=== PATIENT | female | born 1945 | race Caucasian/White ===

== ENCOUNTER 2023-07-15 09:13 | Day surgery (SDC) | payer OTHER, SELFPAY ==
[2023-07-05 10:24] VITALS: BMI 28.8
[2023-07-05 10:53] LABS: % Basophils 0.5 % (0-2); % Eosinophils 2.5 % (0-6); % Immature Granulocytes 0.3 % (0-0.5); % Lymphocytes 36.3 % (20.5-51.1); % Monocytes 9.6 % (1.7-9.3); % Neutrophils 50.8 % (42.2-75.2); Absolute Eosinophils 0.2 10^3/uL (0-0.7); Absolute Lymphocytes 2.3 10^3/uL (1.2-3.4); Absolute Monocytes 0.6 10^3/uL (0.1-0.6); Absolute Neutrophils 3.2 10^3/uL (1.4-6.5); Hematocrit 32.1 % (37.0-47.0); Hemoglobin 10.5 g/dL (12.0-16.0); Mean Corp Hgb Conc. 32.7 g/dL (33.0-37.0); Mean Corpuscular Hgb 28.8 pg (27.0-31.0); Mean Corpuscular Volume 88.2 fL (81.0-99.0); Mean Platelet Volume 10.4 fL (7.4-10.4); Nucleated Red Blood Cells % 0 %; Platelet Count 204 10^3/uL (130-400); Red Blood Cell Count 3.64 10^6/uL (4.20-5.40); Red Cell Dist. Width 13.7 % (11.5-14.5); White Blood Cell Count 6.3 10^3/uL (4.8-10.8)
[2023-07-05 11:00] LABS: ALT (SGPT) 33 U/L (0-35); AST (SGOT) 31 U/L (14-36); Alkaline Phosphatase 63 U/L (38-126); Blood Urea Nitrogen 26 mg/dl (7-17); Calcium 9.2 mg/dl (8.4-10.2); Carbon Dioxide 23 mmol/L (22-30); Chloride 105 mmol/L (98-107); Estimated Creatinine Clearance 25 ml/min; Glucose 165 mg/dl (70-99); Magnesium 2.3 mg/dl (1.6-2.3); Potassium 4.9 mmol/L (3.5-5.1); Sodium 135 mmol/L (135-145); Total Bilirubin 0.3 mg/dl (0.2-1.3); Total Protein 6.4 g/dl (6.3-8.2); eGFR 30.32
[2023-07-15] VITALS (8 sets, daily range): BP systolic 124–182; BP diastolic 57–86
--- NOTE | 2023-07-15 10:42 | W.ICD.CONTRA ---
Post ICD/MEAT BONER-D
-
History of NC?: Yes
LV Function
Left ventricular function study result?: Ejection Fraction </= 35%
ACEI/ARB/ARNI
Patient already on ACEI/ARB/ARNI: No
ACEI/ARB/ARNI Contraindication: Acute Renal Failure (was just stopped in Apr by Dr. Salter)
Beta-Gwen
Patient already on Beta Gwen: Yes
[2023-07-15 11:20] LABS: Glucose - Point of Care 114 mg/dl (70-99)
[2023-07-15 13:53] LABS: Glucose - Point of Care 119 mg/dl (70-99)
[2023-07-15] MEDS: TYLENOL 1000 MG PO (13:53)
--- NOTE | 2023-07-15 13:56 | ITS.CL.ICD ---
Clinical Nursing Professor - ICD
Implantable Cardioverter Defibrillator
Procedure Report:
Primary Rehabilitation Caseworker: Cipriano Salter DO
Procedure Date: 07/15/2023
Name of procedure:
1. Device Revision: Dual Chamber ICD
2. Pulse Generator Change
3. Defibrillator Pocket Revision
History:
Patient is a pleasant 78-year-old female with a past medical history significant for ischemic cardiomyopathy, CAD, diabetes mellitus type 2, hypertension, hyperlipidemia, secondary prevention dual-chamber ICD with extraction and reimplantation who
presents for device ARIANA/COTTON DISPATCHER.
Methods:
After informed consent was obtained, the patient was brought to the EP laboratory in a postabsorptive, nonsedated state. Peripheral IV access was established. Prophylactic antibiotics were administered prior to incision. Continues ECG, blood
pressure, and pulse oximetry were initiated. Cardioversion patch electrodes were placed on the patient's chest and back. A grounding patch was applied to the skin. A 'time out' was called and confirmed. Sedation was administered by the Anesthesia
service.
The left chest was prepared and draped in a sterile fashion. Local anesthesia was injected in the subcutaneous tissue in the infraclavicular area. An incision was made into the chronic scar. With cautious attention to the leads, the subcutaneous
tissue was dissected the level of the device capsule. The capsule was opened, the device was explanted and disconnected from the leads. The leads were inspected and found to be free of visible defect. The leads were tested and found to have
adequate pacing and sensing parameters, consistent with pre-procedure measurements.
The pocket was revised to accommodate the new device. The pocket was flushed with antibiotic solution and hemostasis was assured. The generator was connected to the leads and placed inside the pocket. The wound was closed with 3 running layers of
absorbable suture and Steri-strips were applied to the skin. Dressing was applied in the typical fashion.
Following the procedure, the patient was taken to the recovery area in stable condition. No complications were noted.
Lead parameters and device programming:
- RA Lead ([employer], Model: Setrox S 45, Serial# [id number]): Sensing 3.2 mV, Pacing threshold 0.8 V at 0.4 ms, Imp 580 ohm
- RV Lead ([employer], Model: Linox Smart S60, Serial# [id number]): Sensing 2.3 mV, Pacing threshold 0.8 V at 0.4 ms, Imp 463 ohm; Shock Impedance: 58 ohm
- Device: [employer] DC ICD (Model: Ilivia Miki 7 DR-T, Serial# [id number]), programmed DDI 50 with increased AV delay; programmed to prior settings (preprocedure)
- Zones: Monitor 150�188, VT 188�231 ATP x 2, ATP x 1/20 J / 40 J x 7; VF 231 ATP x 1/30 J / 40 J x 7
Explanted device: [employer] model: Lumax 740 DR�T, Serial# [id number]
Conclusions:
1. Successful dual chamber defibrillator revision
2. Pulse generator change, DC ICD
3. Normal function of ICD and lead at implant testing.
Recommendations:
1. Discharge home when stable
2. Follow-up will be arranged in our office 7-10 days post-discharge for wound check; follow up with eight section blower as scheduled.
Kirby Flores DO
Copy to: Cipriano Salter DO; Alfredito Olmstead MD
[2023-07-15] MEDS: LYRICA 25 MG PO (14:15)
[2023-07-15] MEDS: LIDOCAINE 4% PATCH 1 PATCH TOPICAL (14:15)
== END 2023-07-15 15:00 | disposition home or self-care (01) ==
LOC: CATH 09:13
PROVIDERS: ATTENDING PHYSICIAN Internal Medicine Cardiovascular Disease; FAMILY PHYSICIAN Family Medicine; OTHER PHYSICIAN Internal Medicine Cardiovascular Disease
DX: Z45.02 Encounter for adjustment and management of automatic implantable cardiac defibrillator (principal); Z86.74 Personal history of sudden cardiac arrest; Z79.899 Other long term (current) drug therapy; I25.5 Ischemic cardiomyopathy; I47.20 Ventricular tachycardia, unspecified; I13.10 Hypertensive heart and chronic kidney disease without heart failure, with stage 1 through stage 4 chronic kidney disease, or unspecified chronic kidney disease; N18.30 Chronic kidney disease, stage 3 unspecified; I25.10 Atherosclerotic heart disease of native coronary artery without angina pectoris; Z95.5 Presence of coronary angioplasty implant and graft; E11.22 Type 2 diabetes mellitus with diabetic chronic kidney disease; E78.5 Hyperlipidemia, unspecified; Z87.19 Personal history of other diseases of the digestive system; E11.319 Type 2 diabetes mellitus with unspecified diabetic retinopathy without macular edema; E11.40 Type 2 diabetes mellitus with diabetic neuropathy, unspecified; Z79.84 Long term (current) use of oral hypoglycemic drugs; Z87.891 Personal history of nicotine dependence; M48.00 Spinal stenosis, site unspecified; K21.9 Gastro-esophageal reflux disease without esophagitis; D64.9 Anemia, unspecified; Z79.82 Long term (current) use of aspirin; Z88.1 Allergy status to other antibiotic agents
CPT/HCPCS: 33263; 36415; 80053; 82962; 83735; 85025; 93005; C1721